=== PATIENT | male | born 1945 | race Caucasian/White ===

== ENCOUNTER 2017-04-24 20:10 | Emergency (ER) | payer OTHER ==
[~2017-04-24] VITALS: Ht 177.8 cm; Wt 87.6 kg
[~2017-04-24 20:10] MED LIST: ADULT LOW DOSE81 M1; ASPIR 8181 M1; ASPIRIN81 M2; COUMADIN5 MG PO; CRESTOR; CRESTOR40 MG; DELTASONE20 M1 PO; DILANTIN100 MG PO; LEVAQUIN750 MG PO; LOW DOSE ASPIRI81 M2 PO; MORPHINE SULFA100 M2; PHENERGAN-CODE120 ML PO; PLAVIX; PLAVIX75 MG; TPN; [UNRECOGNIZED DRUG - REMARK] PO
[2017-04-25 00:11] VITALS: BP 143/68
== END 2017-04-25 00:11 | disposition home or self-care (01) ==
LOC: EME 20:10
PROC: 0HQ1XZZ Repair Face Skin, External Approach (ICD-10-PCS; principal; 2017-04-24)
DX: S01.112A Laceration without foreign body of left eyelid and periocular area, initial encounter (principal); S01.412A Laceration without foreign body of left cheek and temporomandibular area, initial encounter; W18.39XA Other fall on same level, initial encounter; Y93.01 Activity, walking, marching and hiking; Z95.1 Presence of aortocoronary bypass graft; Z79.02 Long term (current) use of antithrombotics/antiplatelets; Z79.82 Long term (current) use of aspirin; Z85.818 Personal history of malignant neoplasm of other sites of lip, oral cavity, and pharynx; Z87.891 Personal history of nicotine dependence
CPT/HCPCS: 70450; 99281; 99285

== ENCOUNTER 2017-11-27 16:12 | Observation (INO) | payer OTHER ==
[~2017-11-27] VITALS: Ht 177.8 cm; Wt 86.5 kg
[~2017-11-27 16:12] MED LIST changes: -ADULT LOW DOSE81 M1; +ADULT LOW DOSE81 M1 PO; -CRESTOR40 MG; +CRESTOR40 MG PO; -PLAVIX75 MG; +PLAVIX75 MG PO
[2017-11-27 17:08] LABS: HEMATOCRIT 51.4 % (38.0-50.0); HEMOGLOBIN 17.3 G/DL (12.5-16.6); MCH 33.9 PG (29.0-34.0); MCHC 33.7 G/DL (30.0-36.0); MCV 100.8 FL (86-99); PLATELET COUNT 147 K/uL (156-360); RBC DIS.WIDTH-CV 13.4 % (11.8-14.6); RBC DIS.WIDTH-SD 50.9 % (39-53); WHITE BLOOD COUNT 6.7 K/uL (4.1-10.2)
[2017-11-27 17:16] LABS: CHLORIDE 104 mEq/L (99-109); POTASSIUM 3.7 mEq/L (3.7-5.4); SODIUM 137 mEq/L (136-147)
[2017-11-27 17:18] LABS: GLUCOSE 98 mg/dL (70-99)
[2017-11-27 17:22] LABS: CREATININE 1.2 mg/dL (0.6-1.3); GFR ESTIMATE (CALCULATED) > 59 mL/min/ (58.99-99999); UREA NITROGEN (BUN) 10 mg/dL (9-23)
[2017-11-27 17:31] LABS: TROP-I INTERPRETATION NEGATIVE; TROPONIN-I 0.03 ng/mL (0.0-0.30)
[2017-11-27] MEDS ORDERED: ROXICODONE30 MG PO (18:58)
[2017-11-27] MEDS ORDERED: SYNTHROID75 MCG PO (18:59)
[2017-11-27 20:36] LABS: D-DIMER ELISA < 150.00 ng/mLDDU (<230)
[2017-11-27 23:15] VITALS: BP 162/90
[2017-11-28 01:09] LABS: TROP-I INTERPRETATION NEGATIVE; TROPONIN-I 0.03 ng/mL (0.0-0.30)
[2017-11-28 03:51] VITALS: BP 143/74
[2017-11-28 06:46] LABS: HEMATOCRIT 53.2 % (38.0-50.0); HEMOGLOBIN 17.7 G/DL (12.5-16.6); MCH 33.8 PG (29.0-34.0); MCHC 33.3 G/DL (30.0-36.0); MCV 101.5 FL (86-99); PLATELET COUNT 123 K/uL (156-360); RBC DIS.WIDTH-CV 13.5 % (11.8-14.6); RBC DIS.WIDTH-SD 51.7 % (39-53); RED BLOOD COUNT 5.24 M/uL (4.00-5.50); WHITE BLOOD COUNT 6.6 K/uL (4.1-10.2)
[2017-11-28 06:55] LABS: INTER. NORMALIZED RATIO 1.1
[2017-11-28 06:58] LABS: PTT 27.5 SEC (25-37)
[2017-11-28 07:05] LABS: TROP-I INTERPRETATION NEGATIVE; TROPONIN-I 0.02 ng/mL (0.0-0.30)
[2017-11-28 07:18] LABS: CHLORIDE 105 MEQ/L (99-109); CREATININE 1.1 MG/DL (0.6-1.3); GFR ESTIMATE (CALCULATED) > 59 mL/min/ (58.99-99999); GLUCOSE 81 mg/dL (70-99); SODIUM 137 MEQ/L (136-147); UREA NITROGEN (BUN) 9 mg/dL (9-23)
[2017-11-28 10:02] VITALS: BP 140/77
== END 2017-11-28 11:33 | disposition home or self-care (01) ==
LOC: EME 16:12 → EDOF 18:58 → ENRESERV 19:00 → 5WEST 20:24
PROVIDERS: Hospitalist
DX: R07.9 Chest pain, unspecified (principal); E86.0 Dehydration; I25.10 Atherosclerotic heart disease of native coronary artery without angina pectoris; I25.2 Old myocardial infarction; I45.10 Unspecified right bundle-branch block; G89.29 Other chronic pain; Z85.21 Personal history of malignant neoplasm of larynx; Z92.3 Personal history of irradiation; Z87.891 Personal history of nicotine dependence; H40.9 Unspecified glaucoma; Z95.1 Presence of aortocoronary bypass graft
CPT/HCPCS: 71046; 80048; 84484; 85027; 85379; 85610; 85730; 93005; 99281; 99285; G0378; J7030